=== PATIENT | female | born 1960 | race Caucasian/White ===

== ENCOUNTER 2017-07-04 12:29 | Outpatient (CLI) | payer BC ==
--- NOTE | 2017-07-04 14:26 | MMO ---
BILATERAL MAMMOGRAMS: DATE: 07/04/17 HISTORY: Screening mammography. COMPARISON: 12/04/12 and 03/15/16. FINDINGS: Heterogeneously dense fibroglandular tissue and benign-appearing calcifications are again demonstrat ed. Lobular nodule deep within the lateral aspect of the left breast is stable. There is no new ej nant mass or suspicious calcifications. The study was evaluated with the assistance of computer-aided detection. IMPRESSION: BIRADS 2: Benign Finding(s) Suggest routine follow-up. POS: COLT
--- NOTE | 2017-07-04 15:49 | BD ---
DEXA BONE MINERAL DENSITOMETRY EXAM, DENSITY STUDY: HISTORY: A 57-year-old female with osteoporosis. FINDINGS: Lumbar Spine: BMD (g/cm2) L1 0.663 T-Score: -3.0 L2 0.739 T-Score: -2.6 L3 0.784 T-Score: -2.7 L4 0.828 T-Score: -2.1 L1-L4 0.758 T-Score: -2.3 Evidence for osteoporosis with high risk for fracture. Left Femur: Femoral Neck: 0.462 T-Score: -3.5 Total Femur: 0.606 T-Score: -2.8 Evidence for severe osteoporosis with high risk for fracture. FRAX score is not reported because T-scores are at or below -2.5. POS: COLT
== END 2017-07-04 12:30 | disposition home or self-care (01) ==
LOC: MAMMO 12:29
PROVIDERS: ATTEND Obstetrics & Gynecology
DX: Z12.31 Encounter for screening mammogram for malignant neoplasm of breast (principal); Z13.820 Encounter for screening for osteoporosis; Z78.0 Asymptomatic menopausal state; M81.0 Age-related osteoporosis without current pathological fracture
CPT/HCPCS: 77067; 77080; G0202

== ENCOUNTER 2023-03-19 15:17 | Outpatient (CLI) | payer OTHER | END 2023-03-19 15:18 | disposition home or self-care (01) | LOC: BICMAMMO 15:17 | PROVIDERS: ATTEND Student in an Organized Health Care Education/Training Program | DX: Z13.820 Encounter for screening for osteoporosis (principal); M81.0 Age-related osteoporosis without current pathological fracture | CPT/HCPCS: 77080 ==

== ENCOUNTER 2024-05-20 14:43 | Outpatient (CLI) | payer OTHER | END 2024-05-20 14:44 | disposition home or self-care (01) | LOC: BICMAMMO 14:43 | PROVIDERS: ATTEND Internal Medicine Hematology & Oncology | DX: M85.89 Other specified disorders of bone density and structure, multiple sites (principal); M81.8 Other osteoporosis without current pathological fracture | CPT/HCPCS: 77080 ==

== ENCOUNTER 2025-06-23 07:53 | Outpatient (CLI) | payer OTHER | END 2025-06-23 07:54 | disposition home or self-care (01) | LOC: BICMAMMO 07:53 | PROVIDERS: ATTEND Internal Medicine Hematology & Oncology | DX: M81.8 Other osteoporosis without current pathological fracture (principal) | CPT/HCPCS: 77080 ==